=== PATIENT | male | born 1960 | race African-American/Black ===

== ENCOUNTER 2019-07-12 17:13 | Emergency (ER) | payer MEDICARE, OTHER ==
[~2019-07-12] VITALS: Ht 175.3 cm; Wt 103.0 kg
[~2019-07-12 17:13] MED LIST: keppra
[2019-07-12 20:38] VITALS: BP 133/93
== END 2019-07-12 20:38 | disposition home or self-care (01) ==
LOC: ER 17:13
DX: K02.9 Dental caries, unspecified (principal); E11.9 Type 2 diabetes mellitus without complications; Z98.890 Other specified postprocedural states
CPT/HCPCS: 99281; 99283

== ENCOUNTER 2025-06-30 09:03 | Emergency (ER) | payer BC, MEDICAID, MEDICARE, OTHER ==
[~2025-06-30] VITALS: Ht 177.8 cm; Wt 84.0 kg
[2025-06-30 09:21] VITALS: TEMP 36.7
[2025-06-30 10:33] VITALS: BP 142/80; PULSE 57; RESP 18; O2SAT 100
== END 2025-06-30 10:40 | disposition home or self-care (01) ==
LOC: ER 09:03
DX: S09.90XA Unspecified injury of head, initial encounter (principal); E11.9 Type 2 diabetes mellitus without complications; Z79.899 Other long term (current) drug therapy; Z98.890 Other specified postprocedural states; W22.03XA Walked into furniture, initial encounter; Y93.89 Activity, other specified; Y92.89 Other specified places as the place of occurrence of the external cause; Y99.8 Other external cause status
CPT/HCPCS: 99284